=== PATIENT | male | born 1965 | race Caucasian/White ===

== ENCOUNTER 2019-07-26 09:02 | Emergency (ER) | payer OTHER ==
[2019-07-26 09:07] VITALS: BP 163/86
--- NOTE | 2019-07-26 09:53 | ED ---
Upper Extremity Pain - HPI Summary HPI Summary: This patient is a 54yo M presenting to the ED with a right shoulder pain x approximately 10-12 weeks. He states he injured the shoulder while at work doing any repetitive motion. He states this repetitive motion was only one day , however shoulder has been flaring up over the past 12 weeks or so. He states symptoms improved somewhat with ibuprofen. He denies any trauma or other injury to the area. He has never had tendinitis or overuse injury in the past. Denies other injuries. He states he came here today as his family practitioner is refusing to see him as they "don't do Workmen's Comp." He states he is able to work throughout the last 12 weeks, but the shoulder continues to flare up and be painful. He is endorsing pain to the right lateral and posterior side of her neck radiating somewhat into the right scapula , into the right rotator cuff and down into the rear deltoid. He is also endorsing some intermittent numbness and tingling into the thumb into the index finger without numbness or tingling into the middle, ring or little finger. He continues to have full range of motion and denies any color or temperature changes. - History of Current Complaint Chief Complaint: [place] Stated Complaint: RIGHT SHOULDER INJURY PER PT Time Seen by Provider: 07/26/19 09:09 Hx Obtained From: Patient Onset/Duration: Started Hours Ago Timing: Constant, Lasting Weeks Severity Initially: Moderate Severity Currently: Moderate Pain Location: Shoulder Character: Aching Aggravating Factor(s): Movement, Lifting, Flexion, Extension Alleviating Factor(s): Other - internal rotation Associated Signs & Symptoms: Positive: Numbness/Tingling - to the R thumb and index finger Related History: Occupational Injury, Dominant Hand Right - Risk Factors Non-Orthopedic Risk Factor: Negative DVT Risk Factors: Negative Septic Arthritis Risk Factor: Negative Compartment Syndrome Risk Factors: Pain, Paresthesias - Allergies/Home Medications Allergies/Adverse Reactions: Allergies Allergy/AdvReac Type Severity Reaction Status Date / Time Sulfa (Sulfonamide Allergy Hives Verified 07/26/19 09:04 Antibiotics) Home Medications: Home Medications Insulin Aspart Prot/Insuln Asp [Novolog Mix 70-30 Vial] 35 unit SUBCUT BID 07/26 [History Confirmed 07/26/19] Insulin Glargine,Hum.rec.anlog [Lantus] 28 unit SUBCUT BEDTIME 07/26/19 [ History Confirmed 07/26/19] Levothyroxine Sodium [Levoxyl] 88 mcg PO DAILY 07/26/19 [History Confirmed 07/26] PMH/Surg Hx/FS Hx/Imm Hx Previously Healthy: Yes - Immunization History Hx Pertussis Vaccination: No Immunizations Up to Date: Yes Infectious Disease History: No Infectious Disease History: Denies: Traveled Outside the [place] in Last 30 Days - Social History Occupation: Employed Full-time Lives: With Family Alcohol Use: Occasionally Hx Substance Use: No Substance Use Type: Reports: None Hx Tobacco Use: Yes Smoking Status (MU): Light Every Day Tobacco Smoker Review of Systems Negative: Fever, Chills, Fatigue, Skin Diaphoresis Negative: Shortness Of Breath, Cough Genitourinary: Negative Positive: no symptoms reported, see HPI Positive: Arthralgia - right shoulder pain. Negative: Myalgia Skin: Negative Neurological: Negative All Other Systems Reviewed And Are Negative: Yes Physical Exam Triage Information Reviewed: Yes Vital Signs On Initial Exam: Initial Vitals Temp Pulse Resp BP Pulse Ox 97.8 F 83 16 163/86 98 07/26/19 09:04 07/26/19 09:04 07/26/19 09:04 07/26/19 09:04 07/26/19 09:04 Vital Signs Reviewed: Yes Appearance: Positive: Well-Appearing, Well-Nourished Skin: Positive: Warm, Skin Color Reflects Adequate Perfusion Head/Face: Positive: Normal Head/Face Inspection Eyes: Positive: EOMI, CHEL, Conjunctiva Clear Neck: Positive: Supple, No Lymphadenopathy Respiratory/Lung Sounds: Positive: Clear to Auscultation, Breath Sounds Present Cardiovascular: Positive: Pulses are Symmetrical in both Upper and Lower Extremities Musculoskeletal: Positive: Pain @ - right shoulder pain worse with movement and better with rest/internal rotation Neurological: Positive: Alert, Oriented to Person Place, Time, Speech Normal Psychiatric: Positive: Affect/Mood Appropriate Diagnostics - Vital Signs Vital Signs Temp Pulse Resp BP Pulse Ox 07/26/19 09:04 97.8 F 83 16 163/86 98 - Laboratory Lab Statement: Any lab studies that have been ordered have been reviewed, and results considered in the medical decision making process. Course/Dx - Course Course Of Treatment: Patient continues to have full range of motion, no numbness or tingling noted at this time. Pain to the right lateral posterior side of the neck demonstrated cleidomastoid and into the RTC radiating down into the rear deltoid. On physical examination, all shoulder tests are negative including neer test, empty can, rooney lalo, drop arm and apprehension. Discussed this with the patient as symptoms are most likely related to a tendinitis/overuse injury from work. Discussed obtaining a x-ray, however this likely will not show any acute process as he has been denying any trauma or other injury to the area and continues to have full range of motion. Pulses +2 intact bilaterally. Good cap refill. Patient is requesting sling as symptoms improve somewhat with internal rotation. A sling is given. Note for work 4 days are given, however he is encouraged to follow-up with an orthopedic physician or to follow up in our [facility] clinic for further evaluation. - Diagnoses Differential Diagnosis/HQI/PQRI: Positive: Strain, Sprain, Other - shoulder impingement Provider Diagnoses: Tendinitis Discharge ED - Sign-Out/Discharge Documenting (check all that apply): Patient Departure Patient Received Moderate/Deep Sedation with Procedure: No - Discharge Plan Condition: Stable Disposition: HOME Patient Education Materials: Tendinitis (ED) Forms: *Work Release Referrals: [facility] [Outside] Derek Reagan MD [Medical Doctor] - Salbador Mahajan MD [Medical Doctor] - Holly Albert DO [Primary Care Provider] - Additional Instructions: Please follow up with orthopedic physician You may also try to follow up with [facility] I have given you referrals for both Ibuprofen 600mg three times daily x 5 days - then take a break x 3 days as discussed Moist heat to the area as much as possible Tylenol 650mg three times daily may also be used for pain control You may use the sling, but continue to take the shoulder out of the sling and provide range of motion movements to prevent frozen shoulder Avoid any repetitive movements which aggravate the shoulder - Billing Disposition and Condition Condition: STABLE Disposition: Home
== END 2019-07-26 09:45 | disposition home or self-care (01) ==
LOC: ED 09:02
DX: M75.91 Shoulder lesion, unspecified, right shoulder (principal); F17.200 Nicotine dependence, unspecified, uncomplicated; Z79.4 Long term (current) use of insulin; Z79.899 Other long term (current) drug therapy; Z88.2 Allergy status to sulfonamides
CPT/HCPCS: 99282

== ENCOUNTER 2023-10-27 13:18 | Observation (INO) ==
[2023-10-27] MEDS ORDERED: Dextrose 50% Syringe 50 ml 25 GM/50 ML SYRINGE IV PUSH PRN (15:22)
[2023-10-27 15:34] LABS: HDL Cholesterol 47.1 mg/dL
[2023-10-27 15:46] LABS: ABS Basophils 0.1 10^3/uL (0.0-0.1); ABS Eosinophils 0.1 10^3/uL (0.0-0.5); ABS Monocytes 0.6 10^3/uL (0.0-1.1); ABS Neutrophils 7.3 10^3/uL (1.5-7.6); ABS Nucleated RBC 0.01 10^3/ul; Eosinophil % 1.3 %; Hematocrit 47.3 % (38-53); Hemoglobin 16.5 g/dL (13.2-16.3); Lymphocyte % 19.8 %; Mean Corpuscular Hemoglobin 33.6 pg (27-33); Mean Corpuscular Hgb Conc 34.8 g/dL (31-36); Mean Corpuscular Volume 96.4 fL (80-97); Mean Platelet Volume 8.4 fL (7.5-11.2); Nucleated Red Blood Cells % 0.1 %/100WBC (0.0-0.8); Platelet Count 220 10^3/uL (150-450); Red Blood Count 4.91 10^6/uL (4.06-5.63); Red Cell Distribution Width 13.5 % (12-17); White Blood Count 10.1 10^3/uL (3.6-10.2)
[2023-10-27 16:09] LABS: Albumin 4.5 g/dL (3.2-5.2); Albumin/Globulin Ratio 1.7 (1-3); Calcium 9.3 mg/dL (8.6-10.3); Creatinine, Serum 0.98 mg/dL (0.67-1.17); Globulin 2.6 g/dL (2-4); Total Bilirubin 0.9 mg/dL (0.2-1.0); Total Protein 7.1 g/dL (6.4-8.9); eGFR CKD-EPI 89.9 (>60)
[2023-10-27 16:38] LABS: TSH Ultra Thyroid Stim Horm 4.33 mcIU/mL (0.34-5.60)
[2023-10-27] MEDS: Enoxaparin 40 MG/0.4 ML SYR SUBCUT SCH (16:49)
[2023-10-27] MEDS: Insulin GLARGINE 100 un/ml 10 ml VIAL SUBCUT SCH (21:08)
[2023-10-28 06:15] LABS: Hematocrit 46.7 % (38-53); Hemoglobin 16.1 g/dL (13.2-16.3); Mean Corpuscular Hemoglobin 32.8 pg (27-33); Mean Corpuscular Hgb Conc 34.4 g/dL (31-36); Mean Corpuscular Volume 95.2 fL (80-97); Mean Platelet Volume 8.4 fL (7.5-11.2); Platelet Count 206 10^3/uL (150-450); Red Blood Count 4.91 10^6/uL (4.06-5.63); Red Cell Distribution Width 13.3 % (12-17); White Blood Count 8.2 10^3/uL (3.6-10.2)
[2023-10-28 06:33] LABS: Creatinine, Serum 1.01 mg/dL (0.67-1.17); Magnesium 1.9 mg/dL (1.9-2.7); Potassium 4.4 mmol/L (3.5-5.0); eGFR CKD-EPI 86.7 (>60)
[2023-10-28] MEDS: Enoxaparin 40 MG/0.4 ML SYR SUBCUT SCH (16:56)
[2023-10-28] MEDS: Insulin GLARGINE 100 un/ml 10 ml VIAL SUBCUT SCH (20:08)
[2023-10-29 10:04] VITALS: BP 138/66
== END 2023-10-29 11:55 | disposition home or self-care (01) ==
LOC: EDHOLD 13:18 → ED 13:18 → MEDTELE 17:03
PROVIDERS: ADMIT Student in an Organized Health Care Education/Training Program; ATTEND Student in an Organized Health Care Education/Training Program